=== PATIENT | female | born 1955 | race Asian ===

== ENCOUNTER 2017-05-24 09:37 | Day surgery (SDC) | payer OTHER ==
[~2017-05-24] VITALS: Ht 154.9 cm; Wt 51.2 kg
[2017-05-24 10:42] VITALS: Ht 154.9 cm; Wt 51.2 kg
[2017-05-24] MEDS ORDERED: SIMV20TA PO (10:49)
[2017-05-24] MEDS ORDERED: FOLI-49 PO (10:49)
--- NOTE | 2017-05-24 11:38 | OPPN ---
Date/Time of Note Date/Time of Note DATE: 05/24/17 TIME: 11:37 Proc Note GI Procedure Date 05/24/17 Indication: screening/surveillance Pre-procedure Diagnosis Screening colonoscopy Post-procedure Diagnosis Normal all the way into terminal ileum Procedure Performed: Colonoscopy Surgeon see signature line Director Business Intelligence none Anesthesia Type: moderate sedation Tourniquet Time none EBL none Transfusion required none Biopsy 1: None Grafts/Implants none Tubes/Drains none Complication(s) none Disposition: PACU Procedure Description Dictated JESÚS STILES MD May 24, 2017 11:38
[2017-05-24 11:47] VITALS: BP 106/58; PULSE 66; RESP 12
[2017-05-24] MEDS ORDERED: FENTAnyl 50 MCG/ML VIAL ONE (13:40)
[2017-05-24] MEDS ORDERED: MIDAZOLAM 1 MG/ML 2 ML INJ ONE ×2 (13:41)
--- NOTE | 2017-05-24 20:19 | GILP ---
DATE OF PROCEDURE: PROCEDURE: Colonoscopy. INDICATION: A 61-year-old female undergoing this procedure for colon cancer screening. The risks o f the procedure, related and unrelated complications, sedative risks, alternatives discussed and inf ormed consent was obtained. DESCRIPTION OF PROCEDURE: The patient was brought to the GI lab, sedated with Versed 4 mg, fentanyl 100 mcg. After optimal sedation, digital examination was done which was normal. Scope was passed with much ease into rectum and advanced slowly through sigmoid, descending, transverse colon all the way into the cecum. Appendiceal orifice identified entering to terminal ileum which was normal. While coming out, mucosa thoroughly inspected. The rest of the colon was normal. Retroflexion done , no gross lesion was identified. Scope was straightened out and removed with good patient toleranc e. IMPRESSION: 1. Normal findings all the way into the cecum. 2. Normal terminal ileum up to 2 feet. 3. Normal retroversion. 4. Clarity and cleanliness was good. PLAN: 1. Stay on high fiber diet. 2. Next colonoscopy after 10 years. Dictated By: JESÚS DUARTE/DIEGO Conf#: [id number] DID#: [id number]
== END 2017-05-24 13:52 | disposition home or self-care (01) ==
LOC: GIL 09:37
PROVIDERS: ATTEND Internal Medicine Gastroenterology
DX: Z12.11 Encounter for screening for malignant neoplasm of colon (principal); E78.5 Hyperlipidemia, unspecified
CPT/HCPCS: 45378; J2250; J3010; Z7610